=== PATIENT | male | born 1935 | race Native Hawaiian/Other Pacific Islander ===

== ENCOUNTER 2023-10-20 11:02 | Outpatient (CLI) | payer OTHER, SELFPAY | END 2023-10-20 11:03 | disposition home or self-care (01) | LOC: NFLDREF 10-21 10:25 | PROVIDERS: PCP Family Medicine; Referring Provider Family Medicine; Visit Provider Family Medicine | DX: C61 Malignant neoplasm of prostate (principal); Z13.6 Encounter for screening for cardiovascular disorders | CPT/HCPCS: 80061; G0103 ==

== ENCOUNTER 2023-11-02 13:49 | Outpatient (CLI) | payer MEDICARE, SELFPAY ==
--- NOTE | 2023-11-02 15:00 | CRLHL7_ITS ---
For Patients: As a result of the Century Cures Act, medical imaging exams and procedure reports are released immediately into your electronic medical record. You may view this report before your referring provider. If you have questions, please contact your health care provider. DXA BONE MINERAL DENSITY STUDY Reason for exam: Osteopenia. Current height (in): 68. Weight (lb): 155. Menopause age: N/A. Ethnicity: White. 1. Have you had a previous hip or vertebral fracture? Yes. 2. Have you had any fractures during your adult life which did not result from significant trauma (e.g., auto accident)? Yes. 3. Did either of your parents have a hip fracture? No. 4. Do you smoke? No. 5. Have you ever taken Glucocorticoids? No. 6. Do you have rheumatoid arthritis? No. 7. Do you have secondary osteoporosis? No. 8. Do you drink 3 or more alcoholic drinks per day? No. 9. Are you being treated for osteoporosis? No. 10. Have you ever taken any of the following medications: Actonel, Evista, Fosamax, Miacalcin, Reclast, Boniva, Forteo, HRT (i.e., estrogen/hormone therapy), Protelos, Prolia, Vitamin D, Calcium, other ??? please specify. ANSWER: Yes, vitamin D and calcium. 11. Do you have any of the following medical conditions: Anorexia or bulimia, asthma or emphysema, end stage renal disease, hyperparathyroidism, any seizure disorders, cancer, inflammatory bowel diseases, hysterectomy, other ??? please specify. ANSWER: No. 12. What was your maximum height (inches)? 70. 13. Do you perform weight bearing exercise regularly? No. 14. Do you regularly consume dairy products? Yes. 15. Do you drink caffeinated beverages? Yes. TECHNIQUE: Bone mineral density study was performed using the [employer]. FINDINGS: The results of the study expressed as bone mineral density (BMD) are as follows: Lumbar spine L1 to L3: BMD: 1.092 g/cm2. T-score: 0.2. Z-score: 1.5 Neck Left: BMD: 0.721 g/cm2. T-score: -1.5. Z-score: 0.2 Total Left: BMD: 0.901 g/cm2. T-score: -0.9. Z-score: 0.4 IMPRESSION: Osteopenia. *Comparison exams done prior to 08/2019 were performed on different unit, [employer]. Serafin Murray M.D. Diagnostic Radiologist [email or web address] VARINDER/jj jj/Dictated by: Serafin Murray MD @ 11/03/2023 12:55:00 PM (Electronically Signed)
== END 2023-11-02 13:50 | disposition home or self-care (01) ==
LOC: RAD 13:49
PROVIDERS: PCP Family Medicine; Visit Provider Family Medicine
DX: M85.88 Other specified disorders of bone density and structure, other site (principal); I35.1 Nonrheumatic aortic (valve) insufficiency; I34.0 Nonrheumatic mitral (valve) insufficiency; I07.1 Rheumatic tricuspid insufficiency
CPT/HCPCS: 77080; 93306

== ENCOUNTER 2024-10-05 07:26 | Outpatient (CLI) | payer MEDICARE, SELFPAY | END 2024-10-05 07:27 | disposition home or self-care (01) | LOC: NFLDREF 10-08 15:44 | PROVIDERS: PCP Family Medicine; Referring Provider Family Medicine; Visit Provider Family Medicine | DX: C61 Malignant neoplasm of prostate (principal) | CPT/HCPCS: G0103 ==

== ENCOUNTER 2024-10-08 12:41 | Outpatient (CLI) | payer MEDICARE, SELFPAY | END 2024-10-08 12:42 | disposition home or self-care (01) | PROVIDERS: PCP Family Medicine; Visit Provider Internal Medicine Cardiovascular Disease | DX: I34.0 Nonrheumatic mitral (valve) insufficiency (principal); I35.1 Nonrheumatic aortic (valve) insufficiency; I07.1 Rheumatic tricuspid insufficiency; R01.1 Cardiac murmur, unspecified | CPT/HCPCS: 93306 ==